=== PATIENT | female | born 1990 | race African-American/Black ===

== ENCOUNTER 2018-10-18 01:07 | Emergency (ER) | payer SELFPAY ==
--- NOTE | 2018-10-18 01:46 | EDPHYS ---
Physician Documentation [facility] Name: Lakshmi Vaughan Age: 28 yrs Sex: Female : 1990 Arrival Date: 10/18/2018 Time: 01:12 Bed 15 Private MD: ED Physician Jani Celaya HPI: 10/18 01:35 This 28 yrs old Black Female presents to ER via Ambulatory with complaints of Abdominal cp Pain, Urinary Retention. 01:35 The patient presents with urinary symptoms, dysuria, urgency. Onset: The cp symptoms/episode began/occurred last night. Associated signs and symptoms: Pertinent positives: suprapubic pain, Pertinent negatives: fever, vaginal bleeding, vaginal discharge, back pain. Severity of symptoms: in the emergency department the symptoms are unchanged, despite home interventions. 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 - Social history:: Smoking status: Patient uses tobacco products, denies chronic smoking, but will smoke occasionally. - Ebola Screening: : No symptoms or risks identified at this time. ROS: 01:38 Constitutional: Negative for body aches, chills, fever, poor PO intake. cp 01:38 Eyes: Negative for injury, pain, redness, and discharge. cp 01:38 ENT: Negative for drainage from ear(s), ear pain, sore throat, difficulty swallowing, difficulty handling secretions. 01:38 Cardiovascular: Negative for chest pain, edema, palpitations. 01:38 Respiratory: Negative for cough, shortness of breath, wheezing. 01:38 Abdomen/GI: Positive for abdominal pain, of the suprapubic area, Negative for nausea, vomiting, and diarrhea. 01:38 : Positive for urinary symptoms. 01:38 Neuro: Negative for altered mental status, headache, weakness. 01:38 All other systems are negative. Exam: 01:40 Constitutional: The patient appears in no acute distress, alert, awake, comfortable, cp non-toxic, well developed, well nourished. 01:40 Head/Face: Normocephalic, atraumatic. cp 01:40 Eyes: Periorbital structures: appear normal, Conjunctiva: normal, no exudate, no injection, Sclera: no appreciated abnormality, Lids and lashes: appear normal, bilaterally. 01:40 ENT: External ear(s): are unremarkable, Nose: is normal, Mouth: Lips: moist, Oral mucosa: moist, Posterior pharynx: is normal, airway is patent. 01:40 Neck: ROM/movement: is normal, is supple, no meningismus, no nuchal rigidity. 01:40 Chest/axilla: Inspection: normal, Palpation: is normal, no crepitus, no tenderness. 01:40 Cardiovascular: Rate: normal, Rhythm: regular. 01:40 Respiratory: the patient does not display signs of respiratory distress, Respirations: normal, no use of accessory muscles, no retractions, no splinting, no tachypnea. 01:40 Abdomen/GI: Inspection: abdomen appears normal, Palpation: abdomen is soft and non-tender, in all quadrants. 01:40 Back: pain, is absent, ROM is normal. Vital Signs: 01:15 BP 116 / 63; Pulse 71; Resp 16 S; Temp 98.3(O); Pulse Ox 100% on R/A; Weight 86.18 kg bb (R); Height 5 ft. 5 in. (165.10 cm); Pain 9/10; 01:15 Body Mass Index 31.62 (86.18 kg, 165.10 cm) bb MDM: 01:16 Patient medically screened. cp 01:30 Differential diagnosis: pelvic inflammatory disease, urinary tract infection, vaginosis.cp 01:45 Data reviewed: vital signs, nurses notes, lab test result(s), and as a result, I will cp discharge patient. 01:45 Counseling: I had a detailed discussion with the patient and/or guardian regarding: the cp historical points, exam findings, and any diagnostic results supporting the discharge/admit diagnosis, lab results, to return to the emergency department if symptoms worsen or persist or if there are any questions or concerns that arise at home. 10/18 01:35 Order name: Urine Dipstick--Ancillary (enter results) ms 10/18 01:35 Order name: Urine --Ancillary (enter results) ms 10/18 01:35 Order name: Urine Microscopic Only cp 10/18 01:35 Order name: Urine Culture cp 10/18 01:35 Order name: Urine Test (obtain specimen); Complete Time: 01:53 cp 10/18 01:35 Order name: Urine Dipstick-Ancillary (obtain specimen); Complete Time: 01:53 cp Administered Medications: 02:09 Drug: Pyridium 200 mg Route: PO; ed1 02:10 Follow up: Response: Medication administered at discharge. ed1 02:10 Drug: Bactrim (160 mg-800 mg (DS) 1 tablet Route: PO; ed1 02:10 Follow up: Response: Medication administered at discharge. ed1 Disposition: 10/18/18 01:45 Discharged to Home. Impression: Urinary tract infection, site not specified. - Condition is Stable. - Discharge Instructions: Urinary Tract Infection, Adult. - Prescriptions for Pyridium 200 mg Oral Tablet - take 1 tablet by ORAL route every 8 hours for 2 days; 6 tablet. Bactrim DS 800- 160 mg Oral Tablet - take 1 tablet by ORAL route every 12 hours for 7 days; 14 tablet. - Medication Reconciliation Form, Thank You Letter, Antibiotic Education, Prescription Opioid Use form. - Follow up: Private Physician; When: 2 - 3 days; Reason: Worsening of condition. - Problem is new. - Symptoms have improved. Addendum: 10/19/2018 11:16 Co-signature as Attending Physician, Jani Celaya MD I agree with the assessment and c flores plan of care. Signatures: Dispatcher [employer] [facility] Jani Celaya MD MD [facility] Lindsay Chirinos RN RN Aurelia Delgado RN RN ed1 Jani Donald PA PA cp Corrections: (The following items were deleted from the chart) 10/18 02:11 01:45 10/18/2018 01:45 Discharged to Home. Impression: Urinary tract infection, site ed1 not specified. Condition is Stable. Forms are Medication Reconciliation Form, Thank You Letter, Antibiotic Education, Prescription Opioid Use. Follow up: Private Physician; When: 2 - 3 days; Reason: Worsening of condition. Problem is new. Symptoms have improved. cp
--- NOTE | 2018-10-18 01:46 | ER ---
Nurse's Notes [facility] Name: Lakshmi Vaughan Age: 28 yrs Sex: Female : 1990 Arrival Date: 10/18/2018 Time: 01:12 Bed 15 Private MD: Diagnosis: Urinary tract infection, site not specified Presentation: 10/18 01:13 Presenting complaint: Patient states: she just started having symptoms of lower bb abdominal pain, frequency of urination with only urinating a scant amount. Transition of care: patient was not received from another setting of care. Onset of symptoms was October 18, 2018. Risk Assessment: Do you want to hurt yourself or someone else? Patient reports no desire to harm self or others. Initial Sepsis Screen: Does the patient meet any 2 criteria? No. Patient's initial sepsis screen is negative. Does the patient have a suspected source of infection? No. Patient's initial sepsis screen is negative. Care prior to arrival: None. 01:13 Method Of Arrival: Ambulatory bb 01:13 Acuity: ALKA 4 bb Triage Assessment: 01:15 General: Appears in no apparent distress. comfortable, Behavior is calm, cooperative, cc3 appropriate for age. Pain: Complains of pain in abdomen. GI: Abdomen is round non-distended. 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 - Social history:: Smoking status: Patient uses tobacco products, denies chronic smoking, but will smoke occasionally. - Ebola Screening: : No symptoms or risks identified at this time. Screenin:15 Abuse screen: Denies threats or abuse. Denies injuries from another. Nutritional cc3 screening: No deficits noted. Tuberculosis screening: No symptoms or risk factors identified. Fall Risk Ambulatory Aid- None/Bed Rest/Nurse Assist (0 pts). Gait- Normal/Bed Rest/Wheelchair (0 pts) Mental Status- Oriented to own ability (0 pts). Assessment: 01:15 GI: Bowel sounds present X 4 quads. Abd is soft and non tender X 4 quads. cc3 02:10 Reassessment: Patient appears in no apparent distress at this time. Patient and/or cc3 family updated on plan of care and expected duration. Pain level reassessed. Patient is alert, oriented x 3, equal unlabored respirations, skin warm/dry/pink. Patient discharged home vitally stable and ambulatory. Vital Signs: 01:15 BP 116 / 63; Pulse 71; Resp 16 S; Temp 98.3(O); Pulse Ox 100% on R/A; Weight 86.18 kg bb (R); Height 5 ft. 5 in. (165.10 cm); Pain 9/10; 01:15 Body Mass Index 31.62 (86.18 kg, 165.10 cm) bb ED Course: 01:12 Patient arrived in ED. es 01:15 Fatou Donis is Primary Nurse. cc3 01:15 Triage completed. bb 01:15 Arm band placed on Patient placed in an exam room, on a stretcher, on pulse oximetry. bb 01:15 Patient has correct armband on for positive identification. Bed in low position. Call cc3 light in reach. Side rails up X 1. Pulse ox on. NIBP on. 01:16 Jani Donald PA is PHCP. cp 01:16 Jani Celaya MD is Attending Physician. cp 02:10 No provider procedures requiring assistance completed. Patient did not have IV access ed1 during this emergency room visit. Administered Medications: 02:09 Drug: Pyridium 200 mg Route: PO; ed1 02:10 Follow up: Response: Medication administered at discharge. ed1 02:10 Drug: Bactrim (160 mg-800 mg (DS) 1 tablet Route: PO; ed1 02:10 Follow up: Response: Medication administered at discharge. ed1 Outcome: 01:45 Discharge ordered by . cp 02:10 Discharged to home ambulatory. ed1 02:10 Condition: good 02:10 Discharge instructions given to patient, Instructed on discharge instructions, follow up and referral plans. medication usage, Demonstrated understanding of instructions, follow-up care, medications, Prescriptions given X 2. 02:11 Patient left the ED. ed1 Signatures: Enid Peters Brenda, RN RN bb Aurelia Delgado RN RN ed1 Jani Donald PA PA cp Fatou Donis cc3
[2018-10-18] MEDS ORDERED: SMZ./TMP. 800/160 MG TABLET ONE (02:15)
[2018-10-18] MEDS ORDERED: PHENAZOPYRIDINE 100MG TAB PO ONE (02:15)
[2018-10-18 02:17] LABS: Urine Blood 3+ (NEG); Urine Glucose NEGATIVE (NEG); Urine Protein 3+ (NEG); Urine Specific Gravity >1.030 (1.005-1.030); Urine pH 5.5 (5.0-7.0)
[2018-10-18 02:24] LABS: Urine Bacteria >50 /HPF (<20); Urine Culture Reflex Order NOT NEEDED; Urine RBC >50 /HPF (NONE SEEN)
== END 2018-10-18 02:11 | disposition home or self-care (01) ==
LOC: ER 01:07
DX: N39.0 Urinary tract infection, site not specified (principal); Z72.0 Tobacco use
CPT/HCPCS: 81003; 81015; 81025; 87077; 87086; 87088; 87186; 99283

== ENCOUNTER 2020-10-02 11:17 | Emergency (ER) | payer OTHER, SELFPAY ==
--- NOTE | 2020-10-02 14:02 | EDPHYS ---
Physician Documentation [facility] Name: Lakshmi Vaughan Age: 30 yrs Sex: Female : 1990 Arrival Date: 10/02/2020 Time: 11:21 Bed 12 Private MD: ED Physician Coreen Momin HPI: 10/02 13:55 This 30 yrs old Black Female presents to ER via Ambulatory with complaints of C section jmm opening. 13:55 Onset: The symptoms/episode began/occurred gradually. Associated signs and symptoms: jmm Pertinent negatives: abdominal pain, fever. This is a 30 year old female with no chronic medical conditions that presents to the ED with complaints of bleeding from her incision site. Patient is s/p delivery at 36 weeks. Denies fever, purulent drainage or increased pain. . Historical: - Allergies: 11:37 No Known Allergies; ss - PMHx: 11:37 None; ss - PSHx: 11:37 ; ss - Immunization history:: Flu vaccine is up to date. - Social history:: Smoking status: Patient denies any tobacco usage or history of. ROS: 13:55 Constitutional: Negative for fever, chills, and weight loss, Cardiovascular: Negative jmm for chest pain, palpitations, and edema, Respiratory: Negative for shortness of breath, cough, wheezing, and pleuritic chest pain. 13:55 Skin: Positive for wound. 13:55 All other systems are negative. Exam: 13:55 Constitutional: This is a well developed, well nourished patient who is awake, alert, jmm and in no acute distress. Head/Face: atraumatic. Eyes: EOMI, no conjunctival erythema appreciated ENT: Moist Mucus Membranes Neck: Trachea midline, Supple Chest/axilla: Normal chest wall appearance and motion. Cardiovascular: Regular rate and rhythm. No edema appreciated Respiratory: Normal respirations, no respiratory distress appreciated 13:55 Abdomen/GI: incision noted with wound dehiscence, no erythema or induration, no purulent drainage. No active bleeding appreciated. 13:55 Back: ROM is normal. 13:55 Musculoskeletal/extremity: ROM: intact in all extremities. 13:55 Skin: Appearance: Color: normal in color. 13:55 Neuro: Orientation: is normal, Mentation: is normal, Memory: is normal. 13:55 Psych: Behavior/mood is pleasant, cooperative. Vital Signs: 11:37 BP 127 / 84; Pulse 62; Resp 16; Temp 97.0; Pulse Ox 100% ; Weight 97.52 kg; Height 5 ss ft. 5 in. (165.10 cm); Pain 4/10; 11:37 Body Mass Index 35.78 (97.52 kg, 165.10 cm) ss MDM: 13:42 Patient medically screened. [facility] 13:59 Data reviewed: vital signs, nurses notes. Counseling: I had a detailed discussion with tori the patient and/or guardian regarding: the historical points, exam findings, and any diagnostic results supporting the discharge/admit diagnosis, the need for outpatient follow up, to return to the emergency department if symptoms worsen or persist or if there are any questions or concerns that arise at home. ED course: No signs of infection on PE, VS, or HPI. Patient is given strict wound infection return precautions. patient understood and agrees with the plan of care. . 10/02 13:48 Order name: Wound Care [facility] Administered Medications: No medications were administered Disposition: 17:38 Co-signature as Attending Physician, Coreen Momin MD I agree with the assessment ma2 and plan of care. Disposition: 10/02/20 14:01 Discharged to Home. Impression: Wound Evaluation. - Condition is Stable. - Discharge Instructions: Nonsutured Laceration Care, Delivery, Care After. - Medication Reconciliation Form, Thank You Letter, Antibiotic Education, Prescription Opioid Use form. - Follow up: Private Physician; When: 5 - 6 days; Reason: Recheck today's complaints, Continuance of care, Re-evaluation by your physician. Signatures: Mike Ma PA PA [facility] Lizbeth Raymond RN RN ss Paco Marquis RN RN jl7 Coreen Momin MD MD ma2 Corrections: (The following items were deleted from the chart) 14:17 14:01 10/02/2020 14:01 Discharged to Home. Impression: Wound Evaluation. Condition is jl7 Stable. Forms are Medication Reconciliation Form, Thank You Letter, Antibiotic Education, Prescription Opioid Use. Follow up: Private Physician; When: 5 - 6 days; Reason: Recheck today's complaints, Continuance of care, Re-evaluation by your physician. tori
--- NOTE | 2020-10-02 14:02 | ER ---
Nurse's Notes [facility] Name: Lakshmi Vaughan Age: 30 yrs Sex: Female : 1990 Arrival Date: 10/02/2020 Time: 11:21 Bed 12 Private MD: Diagnosis: Wound Evaluation Presentation: 10/02 11:37 Chief complaint: Patient states: Bleeding from incision line since last ss night. Half of the wound is slightly . No fever at this time. Coronavirus screen: Client denies travel out of the [place] in the last 14 days. At this time, the client does not indicate any symptoms associated with coronavirus-19. Ebola Screen: Patient denies travel to an Ebola-affected area in the 21 days before illness onset. Initial Sepsis Screen: Does the patient meet any 2 criteria? No. Patient's initial sepsis screen is negative. Does the patient have a suspected source of infection? Yes: Skin breakdown/wound. Risk Assessment: Do you want to hurt yourself or someone else? Patient reports no desire to harm self or others. Onset of symptoms was October 01, 2020. 11:37 Method Of Arrival: Ambulatory ss 11:37 Acuity: ALKA 4 ss Historical: - Allergies: 11:37 No Known Allergies; ss - PMHx: 11:37 None; ss - PSHx: 11:37 ; ss - Immunization history:: Flu vaccine is up to date. - Social history:: Smoking status: Patient denies any tobacco usage or history of. Screenin:00 Abuse screen: Denies threats or abuse. Denies injuries from another. Nutritional jl7 screening: No deficits noted. Tuberculosis screening: No symptoms or risk factors identified. Fall Risk None identified. Assessment: 14:00 General: Appears in no apparent distress. comfortable, Behavior is calm, cooperative, jl7 appropriate for age. Pain: Denies pain. Neuro: Level of Consciousness is awake, alert, obeys commands, Oriented to person, place, time, situation. Cardiovascular: Patient's skin is warm and dry. Respiratory: Airway is patent Respiratory effort is even, unlabored, Respiratory pattern is regular, symmetrical. Derm: Skin is pink, warm \T\ dry. Vital Signs: 11:37 BP 127 / 84; Pulse 62; Resp 16; Temp 97.0; Pulse Ox 100% ; Weight 97.52 kg; Height 5 ss ft. 5 in. (165.10 cm); Pain 4/10; 11:37 Body Mass Index 35.78 (97.52 kg, 165.10 cm) ED Course: 11:21 Patient arrived in ED. mr 11:36 Arm band placed on. 11:38 Triage completed. 13:38 Mike Ma PA is PHCP. [facility] 13:38 Coreen Momin MD is Attending Physician. [facility] 14:00 Patient has correct armband on for positive identification. Bed in low position. Call jl7 light in reach. Side rails up X 1. 14:00 Wound care: to Surgical incision located on lower abdomen was dressed with ABD pads, jl7 Steri-strips, Patient tolerated well. 14:01 Paco Marquis, RN is Primary Nurse. 7 14:16 No provider procedures requiring assistance completed. Patient did not have IV access jl7 during this emergency room visit. Administered Medications: No medications were administered Outcome: 14:01 Discharge ordered by . [facility] 14:17 Discharged to home ambulatory. jl7 14:17 Condition: stable 14:17 Discharge instructions given to patient, Instructed on discharge instructions, follow up and referral plans. Demonstrated understanding of instructions, follow-up care. 14:17 Patient left the ED. jl7 Signatures: Mike Ma PA PA jmm Rivera, Mary Juliane Burnettby, RN RN Paco Marquis, JENNIFER RN jl
== END 2020-10-02 14:17 | disposition home or self-care (01) ==
LOC: ER 11:17
DX: O90.0 Disruption of cesarean delivery wound (principal)
CPT/HCPCS: 99283